=== PATIENT | female | born 1965 | race Caucasian/White ===

== ENCOUNTER → 2020-04-25 | Outpatient (CLI) | payer MEDICARE, OTHER ==
[~2020-04-25] MED LIST: IBUPROFEN400 MG PO
== END ==
LOC: EXRD 13:33
DX: C50.412 Malignant neoplasm of upper-outer quadrant of left female breast (principal); Z17.0 Estrogen receptor positive status [ER+]; Z78.0 Asymptomatic menopausal state; M85.88 Other specified disorders of bone density and structure, other site
CPT/HCPCS: 77080

== ENCOUNTER → 2021-07-30 | Outpatient (CLI) | payer MEDICARE, OTHER ==
[~2021-07-30] MED LIST changes: +ALDACTONE 25MG25 MG PO; +AMIODARONE HCL200 MG PO; +ANASTROZOLE1 MG PO; +ASPIRIN EC81 MG PO; +B12 ACTIVE1000 MCG PO; +BUMETANIDE1 MG PO; +CARDIZEM 60MG T60 MG PO; +CRESTOR 10 MG T10 MG PO; +DIGOXIN250 MCG PO; +FAMOTIDINE10 MG PO; +FAMOTIDINE20 MG PO; +FLONASE 0.05% N16 GM; +JANTOVEN7.5 MG PO; +LASIX20 MG PO; +LEVOCETIRIZINE D5 MG PO; +LEVOTHYROXINE112 MC1 PO; +LIPITOR10 MG PO; +LOPRESSOR 50 MG50 MG PO; +LOVENOX100 MG/1 M SQ; +LOVENOX120 MG/0.8 SQ; +MECLIZINE HCL25 MG PO; +POTASSIUM CHLO10 ME1 PO; +PROVENTIL HFA6.7 GM INH; +SALINE NOSE SPR45 ML; +TAMOXIFEN CITRA20 MG PO; +VITAMIN D3125 MCG PO; +VITAMIN D375 MCG PO; +[UNRECOGNIZED DRUG - MIXTURE] TP; +[UNRECOGNIZED DRUG - REMARK]
== END ==
LOC: KOH-I 12:35
DX: J81.0 Acute pulmonary edema (principal)
CPT/HCPCS: 71046

== ENCOUNTER → 2021-10-10 | Outpatient (CLI) | payer MEDICARE, OTHER ==
[~2021-10-10] MED LIST changes: +CRESTOR40 MG PO; +DIGITEK125 MCG PO; +LOPRESSOR50 MG PO; +WARFARIN SODIUM1 MG PO; +WARFARIN SODIUM3 MG PO
== END | disposition home or self-care (01) ==
LOC: CATH 07:22 → EDSTATUS 08:00 → CATH 08:00
DX: I08.3 Combined rheumatic disorders of mitral, aortic and tricuspid valves (principal); I48.91 Unspecified atrial fibrillation; I50.30 Unspecified diastolic (congestive) heart failure; I25.10 Atherosclerotic heart disease of native coronary artery without angina pectoris; Z88.0 Allergy status to penicillin; Z88.2 Allergy status to sulfonamides; Z79.82 Long term (current) use of aspirin; Z79.01 Long term (current) use of anticoagulants; Z79.899 Other long term (current) drug therapy
CPT/HCPCS: 93005; 93312; 93320; J1200; J2250; J3010; J7040